=== PATIENT | male | born 1975 | race Caucasian/White ===

== ENCOUNTER 2020-07-29 13:54 | Emergency (ER) | payer BC ==
[2020-07-29] MEDS ORDERED: NORMAL SALINE 1000 ML 1,000 ML IV ONE (14:09)
[2020-07-29] MEDS ORDERED: KETOROLAC TROMETHAMINE INJ/PF 30 MG/1 ML SDV IV ONE (14:10)
--- NOTE | 2020-07-29 14:12 | ER Document Report ---
ED Medical Screen (RME) - General Chief Complaint: Abdominal Pain Stated Complaint: ABDOMINAL PAIN Time Seen by Provider: 07/29/20 14:02 Mode of Arrival: Ambulatory Information source: Patient Notes: 45-year-old male presented to ED for complaint of right abdominal/flank pain for 3 weeks. He states he thought it was a kidney stone but after a week he did not get better so he went to [facility]. That was 2 weeks ago. He states they gave him 10 days worth of Keflex thinking it might be an intestinal bug. He states that the Keflex was finished and then yesterday the pain started again and is worse today so he called [facility] back and they told him to come to the emergency room he might have an appendicitis. He has not had any fevers throughout this time. He is afebrile at this time vital signs are stable. He states his pain level is a 2 out of 5. He does have a history of a cholecystectomy a fractured finger wisdom teeth removal and eye surgery he does not smoke drink or use any illicit drugs. I have ordered blood urine IV fluids Toradol and a CT abdomen pelvis to rule out a kidney stone. I have greeted and performed a rapid initial assessment of this patient. A comprehensive ED assessment and evaluation of the patient, analysis of test results and completion of medical decision making process will be conducted by an additional ED providers. TRAVEL OUTSIDE OF THE [place] IN LAST 30 DAYS: No - Related Data Allergies/Adverse Reactions: No Known Allergies Allergy (Verified 11/11/15 16:29) Past Medical History Renal/ Medical History: Reports: Hx Kidney Stones Past Surgical History: Reports: Hx Abdominal Surgery - GASTRIC SLEEVE - Immunizations Hx Diphtheria, Pertussis, Tetanus Vaccination: Yes - UTD Physical Exam - Vital signs Vitals: Temp Pulse Resp BP Pulse Ox 98.1 F 83 18 137/85 H 98 07/29/20 13:59 07/29/20 13:59 07/29/20 13:59 07/29/20 13:59 07/29/20 13:59 Course - Vital Signs Vital signs: Temp Pulse Resp BP Pulse Ox 98.1 F 83 18 137/85 H 98 07/29/20 13:59 07/29/20 13:59 07/29/20 13:59 07/29/20 13:59 07/29/20 13:59
[2020-07-29 14:29] LABS: ABSOLUTE EOSINOPHILS # (AUTO) 0.1 10^3/uL (0.0-0.6); ABSOLUTE LYMPHOCYTES (AUTO) 1.5 10^3/uL (0.5-4.7); ABSOLUTE MONOCYTES (AUTO) 0.4 10^3/uL (0.1-1.4); ABSOLUTE NEUT (AUTO) 4.1 10^3/uL (1.7-8.2); BASOPHILS % (AUTO) 0.7 % (0-2); EOSINOPHILS % (AUTO) 1.5 % (0-6); HEMATOCRIT 45.7 % (37.9-51.0); HEMOGLOBIN 16.3 g/dL (13.5-17.0); LYMPHOCYTES % (AUTO) 24.7 % (13-45); MEAN CORPUSCULAR HEMOGLOBIN 30.5 pg (27.0-33.4); MEAN CORPUSCULAR HGB CONC 35.6 g/dL (32.0-36.0); MEAN CORPUSCULAR VOLUME 86 fl (80-97); MONOCYTES % (AUTO) 5.9 % (3-13); PLATELET COUNT 169 10^3/uL (150-450); RED BLOOD COUNT 5.33 10^6/uL (4.35-5.55); RED CELL DISTRIBUTION WIDTH 13.7 % (11.5-14.0); SEGMENTED NEUTROPHILS % (AUTO) 67.2 % (42-78); TOTAL CELLS COUNTED % (AUTO) 100 %; WHITE BLOOD COUNT 6.1 10^3/uL (4.0-10.5)
[2020-07-29 14:45] LABS: ALBUMIN 4.4 g/dL (3.5-5.0); ALKALINE PHOSPHATASE 72 U/L (38-126); ANION GAP 10 (5-19); ASPARTATE AMINO TRANSFERASE 30 U/L (17-59); BILIRUBIN,DIRECT 0.3 mg/dL (0.0-0.4); BILIRUBIN,TOTAL 0.9 mg/dL (0.2-1.3); BLOOD UREA NITROGEN 17 mg/dL (7-20); CALCIUM 9.5 mg/dL (8.4-10.2); CARBON DIOXIDE 27 mmol/L (22-30); CHLORIDE 103 mmol/L (98-107); GLUCOSE 94 mg/dL (75-110); POTASSIUM 4.3 mmol/L (3.6-5.0); TOTAL PROTEIN 6.8 g/dL (6.3-8.2)
--- NOTE | 2020-07-29 16:03 | RADIOLOGY REPORT (SQ) ---
EXAM DESCRIPTION: CT ABD/PELVIS NO ORAL OR IV IMAGES COMPLETED DATE/TIME: 07/29/2020 3:34 pm REASON FOR STUDY: Right flank/abdominal pain x3 weeks COMPARISON: CT of the abdomen and pelvis with contrast from 11/11/2015. TECHNIQUE: CT scan of the abdomen and pelvis performed without intravenous or oral contrast. Images reviewed with lung, soft tissue, and bone windows. Reconstructed coronal and sagittal MPR images revi ewed. All images stored on PACS. All CT scanners at this facility use dose modulation, iterative reconstruction, and/or weight based d osing when appropriate to reduce radiation dose to as low as reasonably achievable (ALARA). [facility]: Dose Right [facility]: CareDose [facility]: Dose Right [facility]: Teradose 4D [facility]: [employer] RADIATION DOSE: CT Rad equipment meets quality standard of care and radiation dose reduction techniq ues were employed. CTDIvol: 18.6 mGy. DLP: 1120 mGy-cm.. LIMITATIONS: None. FINDINGS: LOWER CHEST: No acute findings. NON-CONTRASTED LIVER, SPLEEN, ADRENALS: Evaluation is limited due to the absence of intravenous contr ast. The spleen is enlarged. There is no adrenal mass. PANCREAS: No acute gross abnormality of the pancreas GALLBLADDER: The gallbladder is surgically absent. RIGHT KIDNEY AND URETER: Evaluation is limited due to the absence of intravenous contrast. There is no hydronephrosis, nephrolithiasis, hydroureter or ureterolithiasis. LEFT KIDNEY AND URETER: Evaluation is limited due to the absence of intravenous contrast. There is n o hydronephrosis, nephrolithiasis, hydroureter or ureterolithiasis. AORTA AND RETROPERITONEUM: No aneurysm of the abdominal aorta. No retroperitoneal adenopathy, hemorr abran or mass. BOWEL AND PERITONEAL CAVITY: No bowel obstruction, bowel wall thickening or pericolonic/ perienteric inflammation. No mesenteric adenopathy, free intraperitoneal fluid or mesenteric/ omental inflammati on. APPENDIX: Normal. PELVIS, BLADDER, AND ABDOMINAL WALL:Fat-containing umbilical hernia. There is no abnormality of the urinary bladder and prostate gland that is apparent on a noncontrast CT. BONES: No acute findings. OTHER: No other finding. IMPRESSION: 1. No acute intra-abdominal abnormality. 2. Unchanged splenomegaly. COMMENT: Quality ID # [id number]: Final reports with documentation of one or more dose reduction techniques (e.g., Automated exposure control, adjustment of the mA and/or kV according to patient size, use of iterative reconstruction technique) TECHNICAL DOCUMENTATION: JOB ID: [id number] 2010 [employer]- All Rights Reserved Reading location - IP/workstation name: [email or web address]
--- NOTE | 2020-07-29 17:29 | ER Document Report ---
ED GI/ - General Chief Complaint: Abdominal Pain Stated Complaint: ABDOMINAL PAIN Time Seen by Provider: 07/29/20 14:02 Primary Care Provider: LAVERN BARNHART FNP-C [Primary Care Provider] - Follow up as needed Mode of Arrival: Ambulatory Information source: Patient Notes: 07/29/20 14:07 - ED Nursing Note by TREVON MENON Accdav Num: [id number] : 1975 Patient Age: 45 Pt arrives to ER today for c/o abdominal pain for past 3 weeks, pt states 3 weeks ago pain started in his groin and he thought he had a kidney stone but he went to [facility] and prescribed him Keflex and it started to feel better, pt states he finished keflex on Saturday and then yesterday pt states he had right lower abdominal pain that radiated over to left side, pt states he has not had a fever, no nausea, vomiting, or diarrhea. pt states he has hx of kidney stones, pt states he called [facility] and they told him come to get evaluated and rule out appendicitis. MY notes 45-year-old male arrives by POV with 3 weeks of right lower quadrant radiating to left lower quadrant abdominal pain. Denies any heavy lifting or bending. He was seen by PMD who prescribed him antibiotics cephalosporin Keflex and took it until finishing it on Saturday 3 days ago. He felt much improved by then yesterday began to have worsening abdominal pain. He was sent here to rule out appendicitis. Patient has a history of kidney stones but neither kidney stones or appendicitis was found by the radiologist today on CT. He did have unchanged splenomegaly. I discussed this case with Chelly ROBERTS and examined this patient in triage room 3 TRAVEL OUTSIDE OF THE [place] IN LAST 30 DAYS: No - HPI Patient complains to provider of: Abdominal pain Onset: Last week Timing/Duration: Sudden, Persistent Quality of pain: Achy Severity at maximum: Moderate Pain Level: 2 - Right Location: LLQ, RLQ - Related Data Allergies/Adverse Reactions: No Known Allergies Allergy (Verified 11/11/15 16:29) Past Medical History - General Information source: Patient - Social History Smoking Status: Never Smoker Cigarette use (# per day): No Chew tobacco use (# tins/day): No Smoking Education Provided: No Frequency of alcohol use: None Drug Abuse: None Lives with: Family Family History: Reviewed & Not Pertinent, Other - kidney stone Patient has suicidal ideation: No Patient has homicidal ideation: No Renal/ Medical History: Reports: Hx Kidney Stones Past Surgical History: Reports: Hx Abdominal Surgery - GASTRIC SLEEVE - Immunizations Hx Diphtheria, Pertussis, Tetanus Vaccination: Yes - UTD Review of Systems - Review of Systems Constitutional: No symptoms reported EENT: No symptoms reported Cardiovascular: No symptoms reported Respiratory: No symptoms reported Gastrointestinal: See HPI, Abdominal pain Genitourinary: No symptoms reported Male Genitourinary: No symptoms reported Musculoskeletal: No symptoms reported Skin: No symptoms reported Hematologic/Lymphatic: No symptoms reported Neurological/Psychological: No symptoms reported Physical Exam - Vital signs Vitals: Temp Pulse Resp BP Pulse Ox 98.1 F 83 18 137/85 H 98 07/29/20 13:59 07/29/20 13:59 07/29/20 13:59 07/29/20 13:59 07/29/20 13:59 Interpretation: Normal - General General appearance: Appears well - HEENT Head: Normocephalic, Atraumatic Eyes: Normal Pupils: PERRL Nasal: Normal Mouth/Lips: Normal Mucous membranes: Normal Pharynx: Normal Neck: Normal - Respiratory Respiratory status: No respiratory distress Chest status: Nontender Breath sounds: Normal Chest palpation: Normal - Cardiovascular Rhythm: Regular Heart sounds: Normal auscultation Murmur: No - Abdominal Inspection: Obese Distension: No distension Bowel sounds: Normal Tenderness: Tender - Bilateral inguinal pain on palpation with question of positive hernia reducible on right lower quadrant with cough. - Rectal Prostate: Other - deferred - Genitourinary Scrotum: Other - deferred - Back Back: Normal - Extremities General upper extremity: Normal inspection General lower extremity: Normal inspection - Neurological Neuro grossly intact: Yes Cognition: Normal Orientation: AAOx4 [place] Coma Scale Eye Opening: Spontaneous [place] Coma Scale Verbal: Oriented [place] Coma Scale Motor: Obeys Commands [place] Coma Scale Total: 15 Speech: Normal Motor strength normal: LUE, RUE, LLE, RLE Sensory: Normal - Psychological Associated symptoms: Normal affect - Skin Skin Temperature: Warm Skin Moisture: Dry Course - Vital Signs Vital signs: Temp Pulse Resp BP Pulse Ox 98.1 F 83 18 137/85 H 98 07/29/20 13:59 07/29/20 13:59 07/29/20 13:59 07/29/20 13:59 07/29/20 13:59 - Laboratory Result Diagrams: 07/29/20 14:13 07/29/20 14:13 - Diagnostic Test Radiology reviewed: Reports reviewed Discharge - Discharge Clinical Impression: Abdominal pain in male Condition: Good Disposition: HOME, SELF-CARE Additional Instructions: Follow-up with surgeon of choice ; surgeon on today is Dr. Cabrales /you may see him as outpatient call his office for appointment. Return to ER as needed take medicines as directed avoid lifting bending or twisting until seen by PMD and surgeon Prescriptions: Levofloxacin [Levaquin 500 mg Tablet] 500 mg PO DAILY #7 tablet Referrals: LAVERN BARNHART, ELECTROENCEPHALOGRAPHIC TECHNOLOGIST-C [Primary Care Provider] - Follow up as needed
--- NOTE | 2020-07-29 17:30 | ER Document Report ---
ED GI/ - General Chief Complaint: Abdominal Pain Stated Complaint: ABDOMINAL PAIN Time Seen by Provider: 07/29/20 14:02 Primary Care Provider: LAVERN BARNHART FNP-C [Primary Care Provider] - Follow up as needed Mode of Arrival: Ambulatory Notes: 45-year-old male presented to ED for complaint of right abdominal/flank pain for 3 weeks. He states he thought it was a kidney stone but after a week he did not get better so he went to [facility]. That was 2 weeks ago. He states they gave him 10 days worth of Keflex thinking it might be an intestinal bug. He states that the Keflex was finished and then yesterday the pain started again and is worse today so he called [facility] back and they told him to come to the emergency room he might have an appendicitis. He has not had any fevers throughout this time. He is afebrile at this time vital signs are stable. He states his pain level is a 2 out of 5. He does have a history of a cholecystectomy a fractured finger wisdom teeth removal and eye surgery he does not smoke drink or use any illicit drugs. I have ordered blood urine IV fluids Toradol and a CT abdomen pelvis to rule out a kidney stone. TRAVEL OUTSIDE OF THE [place] IN LAST 30 DAYS: No - Related Data Allergies/Adverse Reactions: No Known Allergies Allergy (Verified 11/11/15 16:29) Past Medical History - General Information source: Patient - Social History Smoking Status: Never Smoker Chew tobacco use (# tins/day): No Frequency of alcohol use: None Drug Abuse: None Family History: Other - kidney stone Renal/ Medical History: Reports: Hx Kidney Stones Past Surgical History: Reports: Hx Abdominal Surgery - GASTRIC SLEEVE - Immunizations Hx Diphtheria, Pertussis, Tetanus Vaccination: Yes - UTD Physical Exam - Vital signs Vitals: Temp Pulse Resp BP Pulse Ox 98.1 F 83 18 137/85 H 98 07/29/20 13:59 07/29/20 13:59 07/29/20 13:59 07/29/20 13:59 07/29/20 13:59 Course - Vital Signs Vital signs: Temp Pulse Resp BP Pulse Ox 98.1 F 83 18 137/85 H 98 07/29/20 13:59 07/29/20 13:59 07/29/20 13:59 07/29/20 13:59 07/29/20 13:59 - Laboratory Result Diagrams: 07/29/20 14:13 07/29/20 14:13 Discharge - Discharge Referrals: LAVERN BARNHART FNP-C [Primary Care Provider] - Follow up as needed
[2020-07-29 17:40] LABS: APPEARANCE,URINE CLEAR; BILIRUBIN,URINE NEGATIVE (NEGATIVE); COLOR,URINE YELLOW; GLUCOSE, URINE NEGATIVE (NEGATIVE); KETONES,URINE NEGATIVE (NEGATIVE); LEUKOCYTE ESTERASE,URINE NEGATIVE (NEGATIVE); NITRITE,URINE NEGATIVE (NEGATIVE); PROTEIN,URINE NEGATIVE (NEGATIVE); URINE SPECIFIC GRAVITY 1.029
[2020-07-29 17:52] VITALS: BP 122/81
== END 2020-07-29 17:53 | disposition home or self-care (01) ==
LOC: ER 13:54
DX: R10.9 Unspecified abdominal pain (principal); R10.30 Lower abdominal pain, unspecified; R10.31 Right lower quadrant pain; R10.32 Left lower quadrant pain
CPT/HCPCS: 99285; 96361; 96374; 36415; 87086; 83690; 85025; 80053; 81001; 74176; J1885; J7030